=== PATIENT | male | born 1985 | race African-American/Black ===

== ENCOUNTER 2018-08-05 19:09 | Emergency (ER) | payer SELFPAY ==
[2018-08-05 20:27] VITALS: BP 130/85
--- NOTE | 2018-08-05 21:27 | ER Document Report ---
ED GI/ - General Chief Complaint: Penile Discharge Stated Complaint: URINATION PAIN Time Seen by Provider: 08/05/18 21:26 Notes: 32-year-old -Domin[place] male to the emergency department complaining of discharge and burning from his penis. Present for 2 days. Denies any other symptoms. No back pain, fever, abdominal pain or other issues. TRAVEL OUTSIDE OF THE [place] IN LAST 30 DAYS: No - HPI Patient complains to provider of: Dysuria Timing/Duration: Gradual, Worse Quality of pain: Burning Severity at maximum: Moderate Severity in ED: Moderate Location: Other - Penis Sexual history: New partner, Unprotected intercourse, STD exposure - Related Data Allergies/Adverse Reactions: No Known Allergies Allergy (Unverified 08/05/18 19:21) Past Medical History - General Information source: Patient - Social History Smoking Status: Current Every Day Smoker Frequency of alcohol use: Occasional Drug Abuse: None Family History: Reviewed & Not Pertinent - Medical History Medical History: Negative Review of Systems - Review of Systems Constitutional: denies: Fever, Malaise, Weakness EENT: denies: Eye pain, Eye discharge, Throat pain, Difficulty swallowing, Throat swelling Cardiovascular: denies: Chest pain, Palpitations, Heart racing Respiratory: denies: Cough, Hurts to breathe, Short of breath, Wheezing Gastrointestinal: denies: Abdominal pain, Diarrhea, Nausea, Vomiting Genitourinary: Burning, Dysuria, Discharge Male Genitourinary: See HPI, Penile discharge Musculoskeletal: denies: Back pain, Joint swelling, Muscle pain, Leg swelling Skin: denies: Dryness, Lesions, Lumps, Rash Neurological/Psychological: denies: Confusion, Weakness, Seizure, Numbness, Tr emor Physical Exam - Vital signs Vitals: Temp Pulse Resp BP Pulse Ox 98.1 F 70 14 130/85 H 97 08/05/18 20:26 08/05/18 20:26 08/05/18 20:26 08/05/18 20:26 08/05/18 20:26 Interpretation: Normal - HEENT Head: Normocephalic, Atraumatic Eyes: Normal Conjunctiva: Normal Cornea: Normal Pupils: PERRL Mouth/Lips: Normal Mucous membranes: Normal Pharynx: Normal Neck: Normal - Respiratory Respiratory status: No respiratory distress Chest status: Nontender Breath sounds: Normal Chest palpation: Normal - Cardiovascular Rhythm: Regular Heart sounds: Normal auscultation Murmur: No - Abdominal Inspection: Normal Distension: No distension Bowel sounds: Normal Tenderness: Nontender Organomegaly: No organomegaly - Genitourinary Inspection: Normal Tenderness: Nontender Scrotum: Normal - Neurological Neuro grossly intact: Yes Cognition: Normal Orientation: AAOx4 Andrew Coma Scale Eye Opening: Spontaneous [place] Coma Scale Verbal: Oriented Andrew Coma Scale Motor: Obeys Commands [place] Coma Scale Total: 15 Speech: Normal Motor strength normal: LUE, RUE, LLE, RLE Sensory: Normal - Skin Skin Temperature: Warm Skin Moisture: Dry Skin Color: Normal Course - Re-evaluation Re-evalutation: 08/05/18 21:46 We will empirically treat for urethritis. Presumable STD. Rocephin IM and azithromycin p.o. and DC on Doxy. 08/05/18 22:14 Laboratory 08/05/18 21:32 Urine Color NATALY Urine Appearance SLIGHTLY-CLOUDY Urine pH 5.0 Ur Specific [place] 1.031 Urine Protein 100 H Urine Glucose (UA) NEGATIVE Urine Ketones 20 H Urine Blood NEGATIVE Urine Nitrite NEGATIVE Urine Bilirubin NEGATIVE Urine Urobilinogen 4.0 H Ur Leukocyte Esterase SMALL H Urine WBC (Auto) 27 Urine RBC (Auto) 14 Squamous Epi Cells Auto <1 Urine Mucus (Auto) FEW Urine Ascorbic Acid 40 H - Vital Signs Vital signs: Temp Pulse Resp BP Pulse Ox 98.1 F 70 14 130/85 H 97 08/05/18 20:26 08/05/18 20:26 08/05/18 20:26 08/05/18 20:26 08/05/18 20:26 - Laboratory Laboratory results interpreted by me: 08/05/18 21:32 Urine Protein 100 H Urine Ketones 20 H Urine Urobilinogen 4.0 H Ur Leukocyte Esterase SMALL H Urine Ascorbic Acid 40 H Discharge - Discharge Clinical Impression: Urethritis Condition: Good Disposition: HOME, SELF-CARE Instructions: Urethritis ([facility]) Prescriptions: Doxycycline Hyclate 100 mg PO BID 7 Days #14 capsule Referrals: [facility] [Provider Group] - Follow up as needed
[2018-08-05] MEDS ORDERED: AZITHROMYCIN 250 MG TABLET PO ONE (21:43)
[2018-08-05 21:47] LABS: APPEARANCE,URINE SLIGHTLY-CLOUDY; BILIRUBIN,URINE NEGATIVE (NEGATIVE); COLOR,URINE AMBER; GLUCOSE, URINE NEGATIVE (NEGATIVE); KETONES,URINE 20 mg/dL (NEGATIVE); LEUKOCYTE ESTERASE,URINE SMALL (NEGATIVE); NITRITE,URINE NEGATIVE (NEGATIVE); PROTEIN,URINE 100 mg/dL (NEGATIVE); URINE SPECIFIC GRAVITY 1.031
[2018-08-05] MEDS ORDERED: PHENAZOPYRIDINE HCL 100 MG TABLET PO ONE (21:47)
[2018-08-05] MEDS ORDERED: CEFTRIAXONE INJ 500 MG VIAL IM ONE (21:55)
[2018-08-05] MEDS ORDERED: LIDOCAINE 1% INJ (10 MG/ML) 10 ML MDV INJ ONE (21:56)
[2018-08-05] MEDS ORDERED: LIDOCAINE 1% INJ-PF (10 MG/ML) 30 ML SDV ONE (21:58)
[2018-08-05] MEDS ORDERED: LIDOCAINE 1% INJ-PF (10 MG/ML) 30 ML SDV INFIL ONE (22:22)
[2018-08-05 23:14] LABS: CHLAM PCR NOT DETECTED (NOT DETECT); GON PCR DETECTED (NOT DETECT)
== END 2018-08-05 22:40 | disposition home or self-care (01) ==
LOC: ER 19:09
DX: N34.2 Other urethritis (principal); Z20.2 Contact with and (suspected) exposure to infections with a predominantly sexual mode of transmission; F17.200 Nicotine dependence, unspecified, uncomplicated
CPT/HCPCS: 99283; 96372; 87086; 81001; 87491; 87591; J3490 ×2; J0696

== ENCOUNTER 2019-07-27 12:07 | Emergency (ER) | payer SELFPAY ==
[2019-07-27] MEDS ORDERED: IBUPROFEN 800 MG TABLET PO ONE (12:19)
[2019-07-27] MEDS ORDERED: PSEUDOEPHEDRINE HCL 30 MG TABLET PO ONE (12:19)
--- NOTE | 2019-07-27 12:21 | ER Document Report ---
HPI - HPI Patient complains to provider of: Symptoms Time Seen by Provider: 07/27/19 12:14 Onset: Yesterday Onset/Duration: Gradual Quality of pain: Achy Pain Level: 1 Context: Patient with flulike symptoms that started yesterday. Patient does complain of cough and back pain with coughing. Patient with fever that started yesterday. Patient currently bundled in a coat and a comforter in triage and declines removing layers. Associated Symptoms: Body/muscle aches, Chills, Nonproductive cough, Fever, Rhinnorhea, Sore throat Exacerbated by: Denies Relieved by: Denies Similar symptoms previously: No Recently seen / treated by doctor: No - ROS ROS below otherwise negative: Yes Systems Reviewed and Negative: Yes All other systems reviewed and negative - CONSTITUTIONAL Constitutional: REPORTS: Fever, Chills - EENT EENT: REPORTS: Sore Throat, Nasal Drainage-Clear, Congestion - RESPIRATORY Respiratory: REPORTS: Coughing. DENIES: Trouble Breathing - GASTROINTESTINAL Gastrointestinal: DENIES: Nausea, Patient vomiting, Diarrhea - DERM Skin Color: Normal Skin Problems: None Past Medical History - General Information source: Patient - Social History Smoking Status: Current Every Day Smoker Chew tobacco use (# tins/day): No Frequency of alcohol use: Occasional Drug Abuse: None Occupation: Construction Family History: Reviewed & Not Pertinent Patient has suicidal ideation: No Patient has homicidal ideation: No - Medical History Medical History: Negative Renal/ Medical History: Denies: Hx Peritoneal Dialysis Surgical Hx: Negative Vertical Provider Document - CONSTITUTIONAL Agree With Documented VS: Yes Exam Limitations: No Limitations General Appearance: WD/WN, No Apparent Distress - INFECTION CONTROL TRAVEL OUTSIDE OF THE [place] IN LAST 30 DAYS: No - HEENT HEENT: Atraumatic, Normocephalic, Pharyngeal Erythema. negative: Pharyngeal Exudate, Pharyngeal Tenderness, Tympanic Membrane Red, Tympanic Membrane Bulging Notes: clear rhinorrhea - NECK Neck: Normal Inspection, Supple - RESPIRATORY Respiratory: No Respiratory Distress, Chest Non-Tender, Other - occasional dry cough - CARDIOVASCULAR Cardiovascular: Regular Rate, Regular Rhythm, No Murmur - GI/ABDOMEN Gastrointestinal: Abdomen Soft - BACK Back: Normal Inspection Notes: Upper back tenderness with coughing - MUSCULOSKELETAL/EXTREMETIES Musculoskeletal/Extremeties: MAEW, FROM, Non-Tender - NEURO Level of Consciousness: Awake, Alert, Appropriate Motor/Sensory: No Motor Deficit - DERM Integumentary: Warm, Dry, No Rash Course - Re-evaluation Re-evalutation: 07/27/19 12:52 Respirations even labored, patient nontoxic in appearance. Patient without any pneumonia or pneumothorax noted on x-ray. Patient with likely flu symptoms. Discussed efficacy and side effect profile of Tamiflu. Patient would like prescription written at this time. - Vital Signs Vital signs: Temp Pulse Resp BP Pulse Ox 101.2 F H 98 16 144/86 H 98 07/27/19 12:12 07/27/19 12:11 07/27/19 12:12 07/27/19 12:11 07/27/19 12:12 - Diagnostic Test Radiology reviewed: Image reviewed, Reports reviewed Discharge - Discharge Clinical Impression: Flu-like symptoms Fever Qualifiers: Fever type: unspecified Qualified Code(s): R50.9 - Fever, unspecified Condition: Stable Disposition: HOME, SELF-CARE Instructions: Acetaminophen, Use of [id number] Ibuprofen ([facility]), Influenza ([facility]) Additional Instructions: Return immediately for any new or worsening symptoms: Persistent fever, difficulty breathing, shortness of breath or any concerning symptoms Followup with your primary care provider, call tomorrow to make a followup appointment Prescriptions: Dextromethorphan HBr [Delsym] 10 ml PO Q12 PRN #100 ml PRN Reason: Oseltamivir Phosphate [Tamiflu 75 mg Capsule] 75 mg PO BID #10 capsule Forms: Return to Work Referrals: [facility] [Provider Group] - Follow up as needed
--- NOTE | 2019-07-27 12:43 | RADIOLOGY REPORT (SQ) ---
EXAM DESCRIPTION: CHEST 2 VIEWS COMPLETED DATE/TIME: 07/27/2019 12:35 pm REASON FOR STUDY: cough, fever COMPARISON: None. EXAM PARAMETERS: NUMBER OF VIEWS: two views TECHNIQUE: Digital Frontal and Lateral radiographic views of the chest acquired. RADIATION DOSE: NA LIMITATIONS: none FINDINGS: LUNGS AND PLEURA: No opacities, masses or pneumothorax. No pleural effusion. MEDIASTINUM AND HILAR STRUCTURES: No masses or contour abnormalities. HEART AND VASCULAR STRUCTURES: Heart normal size. No evidence for failure. BONES: No acute findings. HARDWARE: None in the chest. OTHER: No other significant finding. IMPRESSION: NO ACUTE RADIOGRAPHIC FINDING IN THE CHEST. TECHNICAL DOCUMENTATION: JOB ID: [id number] [employer]- All Rights Reserved Reading location - IP/workstation name: [email or web address]
[2019-07-27 13:05] VITALS: BP 151/77
[2019-07-27] MEDS ORDERED: ACETAMINOPHEN 325 MG TABLET PO ONE (13:09)
== END 2019-07-27 13:23 | disposition home or self-care (01) ==
LOC: ER 12:07
DX: R50.9 Fever, unspecified (principal); R05 Cough; M54.9 Dorsalgia, unspecified; M79.10 Myalgia, unspecified site; J34.89 Other specified disorders of nose and nasal sinuses; J02.9 Acute pharyngitis, unspecified; F17.200 Nicotine dependence, unspecified, uncomplicated
CPT/HCPCS: 71046; 99283

== ENCOUNTER 2020-07-11 04:33 | Emergency (ER) | payer SELFPAY ==
[2020-07-11 06:00] LABS: APPEARANCE,URINE CLEAR; BILIRUBIN,URINE NEGATIVE (NEGATIVE); COLOR,URINE YELLOW; GLUCOSE, URINE NEGATIVE (NEGATIVE); KETONES,URINE NEGATIVE (NEGATIVE); LEUKOCYTE ESTERASE,URINE TRACE (NEGATIVE); NITRITE,URINE NEGATIVE (NEGATIVE); PROTEIN,URINE NEGATIVE (NEGATIVE); URINE SPECIFIC GRAVITY 1.025
[2020-07-11] MEDS ORDERED: CEFTRIAXONE INJ 250 MG VIAL IM ONE (06:47)
[2020-07-11] MEDS ORDERED: AZITHROMYCIN 1 GM SUSP PACKET PO ONE (06:48)
[2020-07-11] MEDS ORDERED: LIDOCAINE 1% INJ-PF (10 MG/ML) 30 ML SDV ONE (06:53)
--- NOTE | 2020-07-11 07:11 | ER Document Report ---
Entered by BEATRIZ GARCIA SCRIBE 07/11/20 0649 Acting as scribe for:DARRELL RODARTE MD ED GI/ - General Chief Complaint: STD Exposure Stated Complaint: LUMP IN GROIN AREA Mode of Arrival: Ambulatory Information source: Patient Notes: This 34-year-old male patient presents to the emergency department today with complaints of a "lump in his groin" for the last 5 or so days along with penile discharge. Patient states the lump in his left groin has increased in size since onset. Patient expresses some concern about possible STI. TRAVEL OUTSIDE OF THE [place] IN LAST 30 DAYS: No - Related Data Allergies/Adverse Reactions: No Known Allergies Allergy (Verified 07/27/19 12:12) Past Medical History - General Information source: Patient - Social History Smoking Status: Current Every Day Smoker Cigarette use (# per day): Yes Frequency of alcohol use: None Drug Abuse: None Lives with: Family Family History: Reviewed & Not Pertinent - Medical History Medical History: Negative Surgical Hx: Negative Review of Systems - Review of Systems Constitutional: No symptoms reported EENT: No symptoms reported Cardiovascular: No symptoms reported Respiratory: No symptoms reported Gastrointestinal: No symptoms reported Genitourinary: No symptoms reported Male Genitourinary: See HPI, Penile discharge, Other - lump in groin Musculoskeletal: No symptoms reported Skin: No symptoms reported Hematologic/Lymphatic: No symptoms reported Neurological/Psychological: No symptoms reported -: Yes All other systems reviewed and negative Physical Exam - Vital signs Vitals: Temp Pulse Resp BP Pulse Ox 98.3 F 85 16 119/70 98 07/11/20 04:38 07/11/20 04:38 07/11/20 04:38 07/11/20 04:38 07/11/20 04:38 - Notes Notes: Physical Exam: General: Alert, appears well. HEENT: Normocephalic. Atraumatic. PERRL. Extraocular movements intact. Oropharynx clear. Neck: Supple. Non-tender. Respiratory: No respiratory distress. Clear and equal breath sounds bilaterally. Cardiovascular: Regular rate and rhythm. Abdominal: Normal Inspection. Non-tender. No distension. Normal Bowel Sounds. Male genitourinary: Performed with male boatbuilder apprentice wood in attendance. There are shotty nodes in the left inguinal area as well as crusted discharge around tip of penis. Back: No gross abnormalities. Extremities: Moves all four extremities. Upper extremities: Normal inspection. Normal ROM. Lower extremities: Normal inspection. No edema. Normal ROM. Neurological: Normal cognition. AAOx4. Normal speech. Psychological: Normal affect. Normal Mood. Skin: Warm. Dry. Normal color. Course - Re-evaluation Re-evalutation: 07/11/20 07:06 Patient resting comfortably. - Vital Signs Vital signs: Temp Pulse Resp BP Pulse Ox 98.3 F 85 16 119/70 98 07/11/20 04:38 07/11/20 04:38 07/11/20 04:38 07/11/20 04:38 07/11/20 04:38 07/11/20 07:06 Vital signs stable have - Laboratory Laboratory results interpreted by me: 07/11/20 05:30 Urine Blood SMALL H Urine Urobilinogen 2.0 H Ur Leukocyte Esterase TRACE H 07/11/20 07:06 PCR chlamydia/gonorrhea probe sent to lab pending at this time. - Diagnostic Test Radiology reviewed: Image reviewed Discharge - Discharge Clinical Impression: STD (male) Condition: Stable Disposition: HOME, SELF-CARE Additional Instructions: Chlamydia You have a chlamydia infection. Chlamydia is a germ that grows inside the cells of the mucous membranes. It often infects the eyes, urethra, and fallopian tubes. It can cause chronic pain and scar tissue if untreated. Antibiotics are used to treat chlamydia. It's important to take all the medicine even if there are no symptoms. Use condoms to prevent spread of the infection. Because this infection can spread by sexual contact, it's important that your sexual partner be checked before resuming sexual relations. A positive test for chlamydia has to be reported to the health department. Call the doctor or return at once if you develop increasing fever, rash, severe pelvic pain, vaginal bleeding (other than your period), or problems with your bladder or bowels. You were treated in the emergency department with IM antibiotic and p.o. antibiotic covers sexually transmitted diseases of gonorrhea/chlamydia. You are also placed on a prescription of doxycycline which will further treat sexually transmitted diseases. Also you have been placed on ibuprofen if needed for pain and swelling. Prescriptions: Doxycycline Hyclate 100 mg PO BID #20 tablet. Ibuprofen [Ibu] 800 mg PO TID PRN 7 Days #21 tablet PRN Reason: prn pain/swelling/fever I personally performed the services described in the documentation, reviewed and edited the documentation which was dictated to the scribe in my presence, and it accurately records my words and actions.
[2020-07-11 07:24] LABS: CHLAM PCR NOT DETECTED (NOT DETECT)
[2020-07-11 07:30] VITALS: BP 108/71
== END 2020-07-11 07:30 | disposition home or self-care (01) ==
LOC: ER 04:33
DX: R36.9 Urethral discharge, unspecified (principal); Z20.2 Contact with and (suspected) exposure to infections with a predominantly sexual mode of transmission; F17.210 Nicotine dependence, cigarettes, uncomplicated
CPT/HCPCS: 99284; 96372; 81001; 87491; 87591; J3490; Q0144; J0696